=== PATIENT | male | born 1960 | race Caucasian/White ===

== ENCOUNTER 2019-01-25 22:16 | Inpatient (IN) | payer MEDICARE, MEDICAID ==
[~2019-01-25] VITALS: Ht 177.8 cm; Wt 92.5 kg
[~2019-01-25 22:16] MED LIST: ASP325TEC PO; CYCL10TA9 PO; DOCU100T7 PO; FENO135C PO; GBPN600T PO; LORA1TAB PO; MTP25TSR PO; NAPR-243 PO; OMG1KC PO; PRAV40TA PO; TRAZ150T42 PO; TRM50T PO; TRZ50T PO
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
--- OUTSIDE RECORDS SUMMARY | 2019-01-25 22:26 | XMS REPORT ---
Author VON Ortega Organization [employer] Address Unknown Phone Unavailable Care Team Providers Care Die Repairer Stamping Name Role Phone VON MAHER CP Unavailable Allergies No Known Allergies Problems Problem Type Condition Code Onset Dates Condition Status Problem Thoracic or lumbosacral neuritis or radiculitis, unspecified 724.4 Active Problem Essential hypertension, benign 401.1 Active Problem Unspecified neuralgia, neuritis, and radiculitis 729.2 Active Assessment Lumbago M54.5 Active Problem Bipolar I disorder, most recent episode (or current) depressed, moderate 296.52 Active Problem Major depressive disorder, recurrent episode, moderate 296.32 Active Problem Unspecified episodic mood disorder 296.90 Active Problem Anxiety state, unspecified 300.00 Active Problem Other and unspecified hyperlipidemia 272.4 Active Problem Abdominal pain, right lower quadrant 789.03 Active Problem Major depressive disorder, recurrent episode, severe, without mention of psychotic behavior 296.33 Active Medications Medication Code System Code Instructions Start Date End Date Status Dosage Oxycodone HCl [facility] [address]-56 10 MG Orally 2 times a day Aug 11, 2015 1 tablet as needed Results No Known Results Summary Purpose [employer] Submission
--- OUTSIDE RECORDS SUMMARY | 2019-01-25 22:26 | XMS REPORT ---
Author Author VON MAHER Organization [employer] Address Unknown Phone Unavailable Care Team Providers Care Pump Servicer Helper Name Role Phone VON MAHER CP Unavailable Allergies No Known Allergies Problems Problem Type Condition Code Onset Dates Condition Status Problem Thoracic or lumbosacral neuritis or radiculitis, unspecified 724.4 Active Problem Essential hypertension, benign 401.1 Active Problem Unspecified neuralgia, neuritis, and radiculitis 729.2 Active Problem Bipolar I disorder, most recent [...] Date End Date Status Dosage Oxycodone HCl [facility] [address]-33 10 MG Orally 2 times a day Aug 11, 2015 1 tablet as needed Ativan [facility] [address]-83 1 MG Twice a day December 23, 2014 1 tablet Results No Known Results Summary Purpose [employer] Submission
--- OUTSIDE RECORDS SUMMARY | 2019-01-25 22:26 | XMS REPORT ---
Author Author VON MAHER Organization [employer] Address Unknown Phone Unavailable Care Team Providers Care Processing Operator Name Role Phone VON MAHER CP Unavailable [...] mention of psychotic behavior 296.33 Active Medications No Known Medications Results No Known Results Summary Purpose [employer] Submission
--- OUTSIDE RECORDS SUMMARY | 2019-01-25 22:26 | XMS REPORT ---
Author VON Ortega [facility] [place] eClinicalWorks Address Unknown Phone Unavailable Care Team Providers Care Dramatic Art Teacher Name Role Phone VON MAHER CP Unavailable Allergies, Adverse Reactions, Alerts Substance Reaction Event Type N.K.D.A. Info Not Available Non Drug Allergy Problems Problem Type Condition Code Onset Dates Condition Status Problem Thoracic or lumbosacral neuritis or radiculitis, unspecified 724.4 Active Problem Essential hypertension, benign 401.1 Active Problem Unspecified neuralgia, neuritis, and radiculitis 729.2 Active Assessment Right-sided low back pain with right-sided sciatica M54.41 Active Assessment Anxiety F41.9 Active Problem Bipolar I disorder, most recent [...] Instructions Start Date End Date Status Dosage Cyclobenzaprine HCl [facility] [address]-43 10 MG Three times a day 1 tablet Pravastatin Sodium [facility] [address]-36 40 MG Orally Once a day Aug 11, 2015 1 tablet Cane [facility] 0 Nov 29, 2012 dx: gait disturbance Ativan [facility] [address]-40 1 MG Twice a day December 23, 2014 1 tablet Trilipix [facility] [address]-35 135 MG Once a day Sep 16, 2014 1 capsule Oxycodone HCl [facility] [address]-05 10 MG Orally 2 times a day Aug 11, 2015 1 tablet as needed Toprol XL [facility] [address]-61 25 MG Once a day Sep 16, 2014 1 tablet Procedures Procedure Coding System Code Date Office Visit, Est Pt., Level 3 CPT-4 34653 Aug 11, 2015 [facility] VISIT ESTABLISHED PATIENT CPT-4 G0467 Aug 11, 2015 Vital Signs Date/Time: Aug 11, 2015 Temperature 97.7 F Weight 237 lbs Height 70 in BMI 34.00 Index Blood Pressure Diastolic 94 mmHg Blood Pressure Systolic 148 mmHg Cardiac Monitoring Heart Rate 88 bpm Results No Known Results Summary Purpose eClinicalWorks Submission
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
--- OUTSIDE RECORDS SUMMARY | 2019-01-25 22:27 | XMS REPORT ---
Author Author VON MAHER Organization [employer] Address Unknown Phone Unavailable Care Team Providers Care Birth Certificate Clerk Name Role Phone VON MAHER CP Unavailable [...] Date End Date Status Dosage Oxycodone HCl [facility] [address]-96 10 MG Orally 2 times a day. FILL ON 10/10/15 Aug 11, 2015 1 tablet as needed Results No Known Results Summary Purpose [employer] Submission
--- OUTSIDE RECORDS SUMMARY | 2019-01-25 22:27 | XMS REPORT ---
Author Author VON MAHER Organization [employer] Address Unknown Phone Unavailable Care Team Providers Care Pre Press Operator Name Role Phone VON MAHER CP [...] Instructions Start Date End Date Status Dosage Ativan [facility] [address]-67 1 MG Twice a day December 23, 2014 1 tablet Results No Known Results Summary Purpose [employer] Submission
--- OUTSIDE RECORDS SUMMARY | 2019-01-25 22:28 | XMS REPORT | Continuity of Care Document ---
Author Organization Unknown Address Unknown Allergies Active Description Code Type Severity Reaction Onset Reported/Identified Relationship to Patient Clinical Status Yes No Known Drug Allergies [id number] Drug Allergy Unknown N/A 06/25/2011 Medications There is no data. Problems Date Dx Coded Attending Type Code Diagnosis Diagnosed By 01/08/2011 VON MAHER APRN 780.52 INSOMNIA UNSPECIFIED 01/08/2011 780.52 INSOMNIA UNSPECIFIED 01/08/2011 VON MAHER APRN 780.52 INSOMNIA UNSPECIFIED 01/08/2011 VON MAHER APRN 780.52 INSOMNIA UNSPECIFIED 01/08/2011 VON MAHER APRN 780.52 INSOMNIA UNSPECIFIED 01/08/2011 VON MAHER APRN 780.52 INSOMNIA UNSPECIFIED 01/08/2011 MELODIE EDWARDS PHD 780.52 INSOMNIA UNSPECIFIED 01/08/2011 VON MAHER APRN 780.52 INSOMNIA UNSPECIFIED 01/08/2011 780.52 INSOMNIA UNSPECIFIED 01/08/2011 780.52 INSOMNIA UNSPECIFIED 01/08/2011 780.52 INSOMNIA UNSPECIFIED 01/08/2011 780.52 INSOMNIA UNSPECIFIED 01/08/2011 780.52 INSOMNIA UNSPECIFIED 01/08/2011 780.52 INSOMNIA UNSPECIFIED 01/08/2011 780.52 INSOMNIA UNSPECIFIED 01/08/2011 MARÍA SZYMANSKI PHD 780.52 INSOMNIA UNSPECIFIED 01/08/2011 MARÍA SZYMANSKI PHD 780.52 INSOMNIA UNSPECIFIED 01/08/2011 VON MAHER APRN 780.52 INSOMNIA UNSPECIFIED 01/08/2011 MARÍA SZYMANSKI PHD 780.52 INSOMNIA UNSPECIFIED 01/08/2011 VON MAHER APRN 780.52 INSOMNIA UNSPECIFIED 01/08/2011 PJ GUTIERREZ APRN 780.52 INSOMNIA UNSPECIFIED 01/08/2011 VIGNESH CUNNINGHAM DO 780.52 INSOMNIA UNSPECIFIED 01/08/2011 VON MAHER APRN 780.52 INSOMNIA UNSPECIFIED 01/08/2011 PJ GUTIERREZ APRN 780.52 INSOMNIA UNSPECIFIED 01/08/2011 EDWARD GARCIA, MARIA D 780.52 INSOMNIA UNSPECIFIED 01/08/2011 VON MAHER APRN 780.52 INSOMNIA UNSPECIFIED 01/08/2011 VON MAHER APRN 780.52 INSOMNIA UNSPECIFIED 01/08/2011 LOZANO DDYUMIKO Mendiola 780.52 INSOMNIA UNSPECIFIED 01/08/2011 VON MAHER APRN 780.52 INSOMNIA UNSPECIFIED 01/08/2011 VON MAHER APRN 780.52 INSOMNIA UNSPECIFIED 01/08/2011 VON MAHER APRN 780.52 INSOMNIA UNSPECIFIED 01/08/2011 VON MAHER APRN 780.52 INSOMNIA UNSPECIFIED 06/26/2011 Ot 272.1 06/26/2011 Ot 272.4 06/26/2011 Ot 305.1 06/26/2011 Ot 401.9 06/26/2011 Ot 414.01 06/26/2011 Ot 447.71 06/26/2011 Ot 786.50 06/26/2011 Ot 789.06 06/26/2011 Ot V17.49 09/08/2011 VON MAHER APRN 724.2 lower back pain 09/08/2011 724.2 lower back pain 09/08/2011 VON MAHER APRN 724.2 lower back pain 09/08/2011 VON MAHER APRN 724.2 lower back pain 09/08/2011 VON MAHER APRN 724.2 lower back pain 09/08/2011 VON MAHER APRN 724.2 lower back pain 09/08/2011 GRACE WARE, MELODIE Jones 724.2 lower back pain 09/08/2011 VON MAHER APRN 724.2 lower back pain 09/08/2011 724.2 lower back pain 09/08/2011 724.2 lower back pain 09/08/2011 724.2 lower back pain 09/08/2011 724.2 lower back pain 09/08/2011 724.2 lower back pain 09/08/2011 724.2 lower back pain 09/08/2011 724.2 lower back pain 09/08/2011 STEPHON WARE, MARÍA Kaur 724.2 lower back pain 09/08/2011 STEPHON WAER, MARÍA Kaur 724.2 lower back pain 09/08/2011 VON MAHER APRN 724.2 lower back pain 09/08/2011 STEPHON WARE, MARÍA Kaur 724.2 lower back pain 09/08/2011 VON MAHER APRN 724.2 lower back pain 09/08/2011 PJ GUTIERREZ APRN 724.2 lower back pain 09/08/2011 VIGNESH CUNNINGHAM DO 724.2 lower back pain 09/08/2011 VON MAHER APRN T 724.2 lower back pain 09/08/2011 PJ GUTIERREZ APRN 724.2 lower back pain 09/08/2011 MARIA D LEON MD 724.2 lower back pain 09/08/2011 VON MAHER APRN 724.2 lower back pain 09/08/2011 VON MAHER APRN 724.2 lower back pain 09/08/2011 YUMIKO LOZANO DDS 724.2 lower back pain 09/08/2011 VON MAHER APRN 724.2 lower back pain 09/08/2011 VON MAHER APRN 724.2 lower back pain 09/08/2011 VON MAHER APRN 724.2 lower back pain 09/08/2011 VON MAHER APRN 724.2 lower back pain 11/24/2011 VON MAHER APRN 300.00 ANXIETY UNSPEC 11/24/2011 300.00 ANXIETY UNSPEC 11/24/2011 VON MAHER APRN 300.00 ANXIETY UNSPEC 11/24/2011 VON MAHER APRN 300.00 ANXIETY UNSPEC 11/24/2011 VON MAHER APRN 300.00 ANXIETY UNSPEC 11/24/2011 VON MAHER APRN 300.00 ANXIETY UNSPEC 11/24/2011 GRACE WARE, MELODIE Jones 300.00 ANXIETY UNSPEC 11/24/2011 VON MAHER APRN 300.00 ANXIETY UNSPEC 11/24/2011 300.00 ANXIETY UNSPEC 11/24/2011 300.00 ANXIETY UNSPEC 11/24/2011 300.00 ANXIETY UNSPEC 11/24/2011 300.00 ANXIETY UNSPEC 11/24/2011 300.00 ANXIETY UNSPEC 11/24/2011 300.00 ANXIETY UNSPEC 11/24/2011 300.00 ANXIETY UNSPEC 11/24/2011 STEPHON WARE, MARÍA Kaur 300.00 ANXIETY UNSPEC 11/24/2011 STEPHON WARE, MARÍA Kaur 300.00 ANXIETY UNSPEC 11/24/2011 VON MAHER APRN 300.00 ANXIETY UNSPEC 11/24/2011 STEPHON WARE, MARÍA Kaur 300.00 ANXIETY UNSPEC 11/24/2011 VON MAHER APRN 300.00 ANXIETY UNSPEC 11/24/2011 PJ GUTIERREZ APRN 300.00 ANXIETY UNSPEC 11/24/2011 MARISA JONES VIGNESH Clemente 300.00 ANXIETY UNSPEC 11/24/2011 GUNNAR KHAN, VON T 300.00 ANXIETY UNSPEC 11/24/2011 PJ GUTIERREZ APRN 300.00 ANXIETY UNSPEC 11/24/2011 MARIA D LEON MD 300.00 ANXIETY UNSPEC 11/24/2011 VON MAHER APRN T 300.00 ANXIETY UNSPEC 11/24/2011 VON MAHER APRN Azeem 300.00 ANXIETY UNSPEC 11/24/2011 YUMIKO LOZANO DDS 300.00 ANXIETY UNSPEC 11/24/2011 VON MAHER APRN Azeem 300.00 ANXIETY UNSPEC 11/24/2011 VON MAHER APRN Azeem 300.00 ANXIETY UNSPEC 11/24/2011 VON MAHER APRN Azeem 300.00 ANXIETY UNSPEC 11/24/2011 VON MAHER APRN Azeem 300.00 ANXIETY UNSPEC 09/27/2012 VON MAHER APRN 272.4 HYPERLIPIDEMIA 09/27/2012 VON MAHER APRN 401.1 HYPERTENSION, BENIGN ESSENTIAL 09/27/2012 VON MAHER APRN 272.4 HYPERLIPIDEMIA 09/27/2012 VON MAHER APRN 401.1 HYPERTENSION, BENIGN ESSENTIAL 09/27/2012 VON MAHER APRN 272.4 HYPERLIPIDEMIA 09/27/2012 VON MAHER APRN 401.1 HYPERTENSION, BENIGN ESSENTIAL 09/27/2012 VON MAHER APRN 272.4 HYPERLIPIDEMIA 09/27/2012 VON MAHER APRN 401.1 HYPERTENSION, BENIGN ESSENTIAL 09/27/2012 MELODIE EDWARDS PHD 272.4 HYPERLIPIDEMIA 09/27/2012 MELODIE EDWARDS PHD 401.1 HYPERTENSION, BENIGN ESSENTIAL 09/27/2012 VON MAHER APRN 272.4 HYPERLIPIDEMIA 09/27/2012 VON MAHER APRN 401.1 HYPERTENSION, BENIGN ESSENTIAL 09/27/2012 272.4 HYPERLIPIDEMIA 09/27/2012 401.1 HYPERTENSION, BENIGN ESSENTIAL 09/27/2012 272.4 HYPERLIPIDEMIA 09/27/2012 401.1 HYPERTENSION, BENIGN ESSENTIAL 09/27/2012 272.4 HYPERLIPIDEMIA 09/27/2012 401.1 HYPERTENSION, BENIGN ESSENTIAL 09/27/2012 272.4 HYPERLIPIDEMIA 09/27/2012 401.1 HYPERTENSION, BENIGN ESSENTIAL 09/27/2012 272.4 HYPERLIPIDEMIA 09/27/2012 401.1 HYPERTENSION, BENIGN ESSENTIAL 09/27/2012 272.4 HYPERLIPIDEMIA 09/27/2012 401.1 HYPERTENSION, BENIGN ESSENTIAL 09/27/2012 272.4 HYPERLIPIDEMIA 09/27/2012 401.1 HYPERTENSION, BENIGN ESSENTIAL 09/27/2012 STEPHON WARE, MARÍA Kaur 272.4 HYPERLIPIDEMIA 09/27/2012 STEPHON WARE, MARÍA Kaur 401.1 HYPERTENSION, BENIGN ESSENTIAL 09/27/2012 STEPHON WARE, MARÍA Kaur 272.4 HYPERLIPIDEMIA 09/27/2012 STEPHON WARE, MARÍA Kaur 401.1 HYPERTENSION, BENIGN ESSENTIAL 09/27/2012 VON MAHER APRN 272.4 HYPERLIPIDEMIA 09/27/2012 VON MAHER APRN 401.1 HYPERTENSION, BENIGN ESSENTIAL 09/27/2012 STEPHON WARE, MARÍA Kaur 272.4 HYPERLIPIDEMIA 09/27/2012 STEPHON WARE, MARÍA Kaur 401.1 HYPERTENSION, BENIGN ESSENTIAL 09/27/2012 VON MAHER APRN 272.4 HYPERLIPIDEMIA 09/27/2012 VON MAHER APRN T 401.1 HYPERTENSION, BENIGN ESSENTIAL 09/27/2012 DIANA GUTIERREZ APRNNDA S 272.4 HYPERLIPIDEMIA 09/27/2012 MATT KHAN PJ S 401.1 HYPERTENSION, BENIGN ESSENTIAL 09/27/2012 CUNNINGHAM DO, VIGNESH K 272.4 HYPERLIPIDEMIA 09/27/2012 CUNNINGHAM DO, VIGNESH K 401.1 HYPERTENSION, BENIGN ESSENTIAL 09/27/2012 VON MAHER APRN T 272.4 HYPERLIPIDEMIA 09/27/2012 VON MAHER APRN 401.1 HYPERTENSION, BENIGN ESSENTIAL 09/27/2012 MATT KHAN PJ S 272.4 HYPERLIPIDEMIA 09/27/2012 MATT KHAN PJ S 401.1 HYPERTENSION, BENIGN ESSENTIAL 09/27/2012 MARIA D LEON MD 272.4 HYPERLIPIDEMIA 09/27/2012 MARIA D LEON MD 401.1 HYPERTENSION, BENIGN ESSENTIAL 09/27/2012 VON MAHER APRN T 272.4 HYPERLIPIDEMIA 09/27/2012 VON MAHER APRN 401.1 HYPERTENSION, BENIGN ESSENTIAL 09/27/2012 VON MAHER APRN 272.4 HYPERLIPIDEMIA 09/27/2012 VON MAHER APRN 401.1 HYPERTENSION, BENIGN ESSENTIAL 09/27/2012 LOZANO DDS, YUMIKO 272.4 HYPERLIPIDEMIA 09/27/2012 LOZANO DDS, YUMIKO 401.1 HYPERTENSION, BENIGN ESSENTIAL 09/27/2012 VON MAHER APRN T 272.4 HYPERLIPIDEMIA 09/27/2012 GUNNAR KHAN, VON T 401.1 HYPERTENSION, BENIGN ESSENTIAL 09/27/2012 VON MAHER APRN T 272.4 HYPERLIPIDEMIA 09/27/2012 VON MAHER APRN T 401.1 HYPERTENSION, BENIGN ESSENTIAL 09/27/2012 VON MAHER APRN T 272.4 HYPERLIPIDEMIA 09/27/2012 VON MAHER APRN T 401.1 HYPERTENSION, BENIGN ESSENTIAL 09/27/2012 VON MAHER APRN T 272.4 HYPERLIPIDEMIA 09/27/2012 VON MAHER APRN T 401.1 HYPERTENSION, BENIGN ESSENTIAL 10/31/2012 VON MAHER APRN T 724.4 THORACIC OR LUMBOSACRAL NEURITIS OR RADICULITIS UNSPECIFIED 10/31/2012 VON MAHER APRN T 724.4 THORACIC OR LUMBOSACRAL NEURITIS OR RADICULITIS UNSPECIFIED 10/31/2012 VON MAHER APRN T 724.4 THORACIC OR LUMBOSACRAL NEURITIS OR RADICULITIS UNSPECIFIED 10/31/2012 GRACE PHD, MELODIE Jones 724.4 THORACIC OR LUMBOSACRAL NEURITIS OR RADICULITIS UNSPECIFIED 10/31/2012 VON MAHER APRN T 724.4 THORACIC OR LUMBOSACRAL NEURITIS OR RADICULITIS UNSPECIFIED 10/31/2012 724.4 THORACIC OR LUMBOSACRAL NEURITIS OR RADICULITIS UNSPECIFIED 10/31/2012 724.4 THORACIC OR LUMBOSACRAL NEURITIS OR RADICULITIS UNSPECIFIED 10/31/2012 724.4 THORACIC OR LUMBOSACRAL NEURITIS OR RADICULITIS UNSPECIFIED 10/31/2012 724.4 THORACIC OR LUMBOSACRAL NEURITIS OR RADICULITIS UNSPECIFIED 10/31/2012 724.4 THORACIC OR LUMBOSACRAL NEURITIS OR RADICULITIS UNSPECIFIED 10/31/2012 724.4 THORACIC OR LUMBOSACRAL NEURITIS OR RADICULITIS UNSPECIFIED 10/31/2012 724.4 THORACIC OR LUMBOSACRAL NEURITIS OR RADICULITIS UNSPECIFIED 10/31/2012 STEPHON WARE, MARÍA Kaur 724.4 THORACIC OR LUMBOSACRAL NEURITIS OR RADICULITIS UNSPECIFIED 10/31/2012 STEPHON WARE, MARÍA Kaur 724.4 THORACIC OR LUMBOSACRAL NEURITIS OR RADICULITIS UNSPECIFIED 10/31/2012 VON MAHER APRN 724.4 THORACIC OR LUMBOSACRAL NEURITIS OR RADICULITIS UNSPECIFIED 10/31/2012 STEPHON WARE, MARÍA Kaur 724.4 THORACIC OR LUMBOSACRAL NEURITIS OR RADICULITIS UNSPECIFIED 10/31/2012 VON MAHER APRN 724.4 THORACIC OR LUMBOSACRAL NEURITIS OR RADICULITIS UNSPECIFIED 10/31/2012 PJ GUTIERREZ APRN 724.4 THORACIC OR LUMBOSACRAL NEURITIS OR RADICULITIS UNSPECIFIED 10/31/2012 VIGNESH CUNNINGHAM DO 724.4 THORACIC OR LUMBOSACRAL NEURITIS OR RADICULITIS UNSPECIFIED 10/31/2012 VON MAHER APRN 724.4 THORACIC OR LUMBOSACRAL NEURITIS OR RADICULITIS UNSPECIFIED 10/31/2012 PJ GUTIERREZ APRN S 724.4 THORACIC OR LUMBOSACRAL NEURITIS OR RADICULITIS UNSPECIFIED 10/31/2012 MARIA D LEON MD 724.4 THORACIC OR LUMBOSACRAL NEURITIS OR RADICULITIS UNSPECIFIED 10/31/2012 VON MAHER APRN 724.4 THORACIC OR LUMBOSACRAL NEURITIS OR RADICULITIS UNSPECIFIED 10/31/2012 VON MAHER APRN 724.4 THORACIC OR LUMBOSACRAL NEURITIS OR RADICULITIS UNSPECIFIED 10/31/2012 YUMIKO LOZANO DDS 724.4 THORACIC OR LUMBOSACRAL NEURITIS OR RADICULITIS UNSPECIFIED 10/31/2012 VON MAHER APRN 724.4 THORACIC OR LUMBOSACRAL NEURITIS OR RADICULITIS UNSPECIFIED 10/31/2012 VON MAHER APRN 724.4 THORACIC OR LUMBOSACRAL NEURITIS OR RADICULITIS UNSPECIFIED 10/31/2012 VON MAHER APRN 724.4 THORACIC OR LUMBOSACRAL NEURITIS OR RADICULITIS UNSPECIFIED 10/31/2012 VON MAHER APRN 724.4 THORACIC OR LUMBOSACRAL NEURITIS OR RADICULITIS UNSPECIFIED 11/29/2012 VON MAHER APRN 729.2 NEURALGIA NEURITIS AND RADICULITIS UNSPECIFIED 11/29/2012 MELODIE EDWARDS PHD 729.2 NEURALGIA NEURITIS AND RADICULITIS UNSPECIFIED 11/29/2012 VON MAHER APRN 729.2 NEURALGIA NEURITIS AND RADICULITIS UNSPECIFIED 11/29/2012 729.2 NEURALGIA NEURITIS AND RADICULITIS UNSPECIFIED 11/29/2012 729.2 NEURALGIA NEURITIS AND RADICULITIS UNSPECIFIED 11/29/2012 729.2 NEURALGIA NEURITIS AND RADICULITIS UNSPECIFIED 11/29/2012 729.2 NEURALGIA NEURITIS AND RADICULITIS UNSPECIFIED 11/29/2012 729.2 NEURALGIA NEURITIS AND RADICULITIS UNSPECIFIED 11/29/2012 729.2 NEURALGIA NEURITIS AND RADICULITIS UNSPECIFIED 11/29/2012 729.2 NEURALGIA NEURITIS AND RADICULITIS UNSPECIFIED 11/29/2012 MAÍRA SZYMANSKI PHD 729.2 NEURALGIA NEURITIS AND RADICULITIS UNSPECIFIED 11/29/2012 MARÍA SZYMANSKI PHD 729.2 NEURALGIA NEURITIS AND RADICULITIS UNSPECIFIED 11/29/2012 VON MAHER APRN 729.2 NEURALGIA NEURITIS AND RADICULITIS UNSPECIFIED 11/29/2012 MARÍA SZYMANSKI PHD 729.2 NEURALGIA NEURITIS AND RADICULITIS UNSPECIFIED 11/29/2012 VON MAHER APRN 729.2 NEURALGIA NEURITIS AND RADICULITIS UNSPECIFIED 11/29/2012 PJ GUTIERREZ APRN S 729.2 NEURALGIA NEURITIS AND RADICULITIS UNSPECIFIED 11/29/2012 VIGNESH CUNNINGHAM DO 729.2 NEURALGIA NEURITIS AND RADICULITIS UNSPECIFIED 11/29/2012 VON MAHER APRN 729.2 NEURALGIA NEURITIS AND RADICULITIS UNSPECIFIED 11/29/2012 PJ GUTIERREZ APRN S 729.2 NEURALGIA NEURITIS AND RADICULITIS UNSPECIFIED 11/29/2012 MARIA D LEON MD 729.2 NEURALGIA NEURITIS AND RADICULITIS UNSPECIFIED 11/29/2012 VON MAHER APRN 729.2 NEURALGIA NEURITIS AND RADICULITIS UNSPECIFIED 11/29/2012 VON MAHER APRN 729.2 NEURALGIA NEURITIS AND RADICULITIS UNSPECIFIED 11/29/2012 BLAKE FRAUSTO, YUMIKO 729.2 NEURALGIA NEURITIS AND RADICULITIS UNSPECIFIED 11/29/2012 VON MAHER APRN 729.2 NEURALGIA NEURITIS AND RADICULITIS UNSPECIFIED 11/29/2012 VON MAHER APRN 729.2 NEURALGIA NEURITIS AND RADICULITIS UNSPECIFIED 11/29/2012 VON MAHER APRN 729.2 NEURALGIA NEURITIS AND RADICULITIS UNSPECIFIED 11/29/2012 VON MAHER APRN 729.2 NEURALGIA NEURITIS AND RADICULITIS UNSPECIFIED 12/04/2012 Ot 847.1 12/04/2012 Ot 847.2 12/04/2012 Ot 922.32 12/04/2012 Ot 923.11 12/04/2012 Ot 959.19 12/04/2012 Ot E000.8 12/04/2012 Ot E001.0 12/04/2012 Ot E849.0 12/04/2012 Ot E885.9 12/20/2012 GRACE WARE, MELODIE Jones 296.33 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 PSYCHOTIC BEHAVIOR 12/20/2012 VON MAHER APRN 296.33 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 PSYCHOTIC BEHAVIOR 12/20/2012 296.33 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 PSYCHOTIC BEHAVIOR 12/20/2012 296.33 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 PSYCHOTIC BEHAVIOR 12/20/2012 296.33 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 PSYCHOTIC BEHAVIOR 12/20/2012 296.33 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 PSYCHOTIC BEHAVIOR 12/20/2012 296.33 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 PSYCHOTIC BEHAVIOR 12/20/2012 296.33 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 PSYCHOTIC BEHAVIOR 12/20/2012 296.33 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 PSYCHOTIC BEHAVIOR 12/20/2012 STEPHON PHD, MARÍA Kaur 296.33 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 PSYCHOTIC BEHAVIOR 12/20/2012 STEPHON WARE, MARÍA Kaur 296.33 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 PSYCHOTIC BEHAVIOR 12/20/2012 GUNNAR SPRAY GUN STRIPER, VON T 296.33 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 PSYCHOTIC BEHAVIOR 12/20/2012 MARÍA SZYMANSKI PHD 296.33 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 PSYCHOTIC BEHAVIOR 12/20/2012 VON MAHER APRN T 296.33 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 PSYCHOTIC BEHAVIOR 12/20/2012 PJ GUTIERREZ APRN S 296.33 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 PSYCHOTIC BEHAVIOR 12/20/2012 VIGNESH CUNNINGHAM DO 296.33 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 PSYCHOTIC BEHAVIOR 12/20/2012 VON MAHER APRN T 296.33 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 PSYCHOTIC BEHAVIOR 12/20/2012 PJ GUTIERREZ APRN S 296.33 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 PSYCHOTIC BEHAVIOR 12/20/2012 MARIA D LEON MD 296.33 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 PSYCHOTIC BEHAVIOR 12/20/2012 VON MAHER APRN 296.33 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 PSYCHOTIC BEHAVIOR 12/20/2012 VON MAHER APRN 296.33 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 PSYCHOTIC BEHAVIOR 12/20/2012 YUMIKO LOZANO DDS 296.33 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 PSYCHOTIC BEHAVIOR 12/20/2012 VON MAHER APRN T 296.33 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 PSYCHOTIC BEHAVIOR 12/20/2012 VON MAHER APRN T 296.33 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 PSYCHOTIC BEHAVIOR 12/20/2012 VON MAHER APRN T 296.33 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 PSYCHOTIC BEHAVIOR 12/20/2012 VON MAHER APRN T 296.33 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 PSYCHOTIC BEHAVIOR 02/26/2013 Ot 780.4 02/26/2013 Ot 785.1 03/12/2013 296.90 MOOD DISORDER 03/12/2013 296.90 MOOD DISORDER 03/12/2013 296.90 MOOD DISORDER 03/12/2013 296.90 MOOD DISORDER 03/12/2013 296.90 MOOD DISORDER 03/12/2013 296.90 MOOD DISORDER 03/12/2013 MARÍA SZYMANSKI PHD 296.90 MOOD DISORDER 03/12/2013 MARÍA SZYMANSKI PHD 296.90 MOOD DISORDER 03/12/2013 VON MAHER APRN 296.90 MOOD DISORDER 03/12/2013 MARÍA SZYMANSKI PHD 296.90 MOOD DISORDER 03/12/2013 GUNNAR SPRAY GUN STRIPER, VON T 296.90 MOOD DISORDER 03/12/2013 MATT KHAN, PJ S 296.90 MOOD DISORDER 03/12/2013 CUNNINGHAM DO, VIGNESH K 296.90 MOOD DISORDER 03/12/2013 GUNNAR KHAN, VON T 296.90 MOOD DISORDER 03/12/2013 MATT KHAN, PJ S 296.90 MOOD DISORDER 03/12/2013 MARIA D LEON MD 296.90 MOOD DISORDER 03/12/2013 GUNNAR KHAN VON T 296.90 MOOD DISORDER 03/12/2013 GUNNAR KHAN, VON T 296.90 MOOD DISORDER 03/12/2013 YUMIKO LOZANO DDS 296.90 MOOD DISORDER 03/12/2013 GUNNAR KHAN, VON T 296.90 MOOD DISORDER 03/12/2013 GUNNAR KHAN, VON T 296.90 MOOD DISORDER 03/12/2013 GUNNAR KHAN, VON T 296.90 MOOD DISORDER 03/12/2013 GUNNAR KHAN VON T 296.90 MOOD DISORDER 03/15/2013 296.32 MO DEPRESSIVE RECURRENT MODERATE 03/15/2013 296.32 MO DEPRESSIVE RECURRENT MODERATE 03/15/2013 296.32 MO DEPRESSIVE RECURRENT MODERATE 03/15/2013 296.32 MO DEPRESSIVE RECURRENT MODERATE 03/15/2013 296.32 MO DEPRESSIVE RECURRENT MODERATE 03/15/2013 STEPHON WARE, MARÍA Kaur 296.32 MO DEPRESSIVE RECURRENT MODERATE 03/15/2013 STEPHON WARE, MARÍA Kaur 296.32 MO DEPRESSIVE RECURRENT MODERATE 03/15/2013 VON MAHER APRN T 296.32 MO DEPRESSIVE RECURRENT MODERATE 03/15/2013 STEPHON WARE, MARÍA Kaur 296.32 MO DEPRESSIVE RECURRENT MODERATE 03/15/2013 VON MAHER APRN T 296.32 MO DEPRESSIVE RECURRENT MODERATE 03/15/2013 DIANA GUTIERREZ APRNNDA S 296.32 MO DEPRESSIVE RECURRENT MODERATE 03/15/2013 CUNNINGHAM DO, VIGNESH K 296.32 MO DEPRESSIVE RECURRENT MODERATE 03/15/2013 VON MAHER APRN T 296.32 MO DEPRESSIVE RECURRENT MODERATE 03/15/2013 DIANA GUTIERREZ APRNNDA S 296.32 MO DEPRESSIVE RECURRENT MODERATE 03/15/2013 MARIA D LEON MD 296.32 MO DEPRESSIVE RECURRENT MODERATE 03/15/2013 VON MAHER APRN T 296.32 MO DEPRESSIVE RECURRENT MODERATE 03/15/2013 VON MAHER APRN T 296.32 MO DEPRESSIVE RECURRENT MODERATE 03/15/2013 LOZANO DDS, YUMIKO 296.32 MO DEPRESSIVE RECURRENT MODERATE 03/15/2013 GUNNAR KHAN VON T 296.32 MO DEPRESSIVE RECURRENT MODERATE 03/15/2013 VON MAHER APRN T 296.32 MO DEPRESSIVE RECURRENT MODERATE 03/15/2013 GUNNAR KHAN VON T 296.32 MO DEPRESSIVE RECURRENT MODERATE 03/15/2013 VON MAHER APRN T 296.32 MO DEPRESSIVE RECURRENT MODERATE 07/13/2013 STEPHON WARE, MARÍA Kaur 296.52 MO BIPOLAR I DEPRESSED MODERATE 07/13/2013 VON MAHER APRN T 296.52 MO BIPOLAR I DEPRESSED MODERATE 07/13/2013 STEPHON WARE, MARÍA Kaur 296.52 MO BIPOLAR I DEPRESSED MODERATE 07/13/2013 VON MAHER APRN T 296.52 MO BIPOLAR I DEPRESSED MODERATE 07/13/2013 PJ GUTIERREZ APRN S 296.52 MO BIPOLAR I DEPRESSED MODERATE 07/13/2013 VIGNESH CUNNINGHAM DO K 296.52 MO BIPOLAR I DEPRESSED MODERATE 07/13/2013 VON MAHER APRN T 296.52 MO BIPOLAR I DEPRESSED MODERATE 07/13/2013 PJ GUTIERREZ APRN S 296.52 MO BIPOLAR I DEPRESSED MODERATE 07/13/2013 MARIA D LEON MD 296.52 MO BIPOLAR I DEPRESSED MODERATE 07/13/2013 VON MAHER APRN T 296.52 MO BIPOLAR I DEPRESSED MODERATE 07/13/2013 GUNNAR KHAN VON T 296.52 MO BIPOLAR I DEPRESSED MODERATE 07/13/2013 LOZANO DDS, YUMIKO 296.52 MO BIPOLAR I DEPRESSED MODERATE 07/13/2013 GUNNAR KHAN VON T 296.52 MO BIPOLAR I DEPRESSED MODERATE 07/13/2013 VON MAHER APRN T 296.52 MO BIPOLAR I DEPRESSED MODERATE 07/13/2013 GUNNAR KHAN VON T 296.52 MO BIPOLAR I DEPRESSED MODERATE 07/13/2013 GUNNAR KHAN VON T 296.52 MO BIPOLAR I DEPRESSED MODERATE 09/17/2013 BENITA GUTIERREZ APRNA S 789.03 ABDOMINAL PAIN RIGHT LOWER QUADRANT 09/17/2013 VIGNESH CUNNINGHAM DO 789.03 ABDOMINAL PAIN RIGHT LOWER QUADRANT 09/17/2013 VON MAHER APRN T 789.03 ABDOMINAL PAIN RIGHT LOWER QUADRANT 09/17/2013 PJ GUTIERREZ APRN S 789.03 ABDOMINAL PAIN RIGHT LOWER QUADRANT 09/17/2013 MARIA D LEON MD 789.03 ABDOMINAL PAIN RIGHT LOWER QUADRANT 09/17/2013 GUNNAR BENNETTN, VON T 789.03 ABDOMINAL PAIN RIGHT LOWER QUADRANT 09/17/2013 GUNNAR KHAN, VON T 789.03 ABDOMINAL PAIN RIGHT LOWER QUADRANT 09/17/2013 BLAKE FRAUSTO, YUMIKO 789.03 ABDOMINAL PAIN RIGHT LOWER QUADRANT 09/17/2013 GUNNAR BENNETTN, VON T 789.03 ABDOMINAL PAIN RIGHT LOWER QUADRANT 09/17/2013 GUNNAR BENNETTN, VON Gann 789.03 ABDOMINAL PAIN RIGHT LOWER QUADRANT 09/17/2013 GUNNAR BENNETTN, VON Gann 789.03 ABDOMINAL PAIN RIGHT LOWER QUADRANT 09/17/2013 GUNNAR ERIN, VON Gann 789.03 ABDOMINAL PAIN RIGHT LOWER QUADRANT 09/18/2013 PJ GUTIERREZ TEACHER TUTOR Ot 272.4 09/18/2013 PJ GUTIERREZ TEACHER TUTOR Ot 401.9 09/18/2013 PJ GUTIERREZ TEACHER TUTOR Ot 414.01 09/18/2013 PJ GUTIERREZ TEACHER TUTOR Ot 540.9 09/18/2013 PJ GUTIERREZ TEACHER TUTOR Ot 724.2 09/02/2015 Ot 724.1 09/02/2015 Ot 724.4 09/02/2015 Ot 722.52 09/02/2015 Ot 959.19 09/02/2015 Ot E000.8 09/02/2015 Ot E917.9 09/02/2015 Ot 272.1 09/02/2015 Ot 414.00 09/02/2015 Ot 790.29 09/02/2015 Ot 724.4 09/02/2015 Ot 724.4 09/02/2015 Ot 733.13 09/02/2015 Ot 780.4 09/02/2015 Ot 785.1 09/02/2015 MAURO GARCIA, MUNIR Gann Ot F17.210 NICOTINE DEPENDENCE, CIGARETTES, UNCOMPL 09/02/2015 MAURO GARCIA, MUNIR Gann Ot K57.90 DVRTCLOS OF INTEST, PART UNSP, W/O PERF 09/02/2015 MAURO GARCIA, MUNIR Gann Ot M43.06 SPONDYLOLYSIS, LUMBAR REGION 09/02/2015 MAURO GARCIA, MUNIR Gann Ot M54.16 RADICULOPATHY, LUMBAR REGION 09/02/2015 MAURO GARCIA, MUNIR Gann Ot S39.92XA UNSPECIFIED INJURY OF LOWER BACK, INITIA 09/02/2015 MUNIR WADE MD Ot W11.XXXA FALL ON AND FROM LADDER, INITIAL ENCOUNT 09/02/2015 MAURO GARCIA, MUNIR Gann Ot Y92.017 GARDEN OR YARD IN SINGLE-FAMILY (PRIVATE 09/02/2015 MUNIR WADE MD Ot Y99.8 OTHER EXTERNAL CAUSE STATUS 09/02/2015 Ot 724.1 09/02/2015 Ot 724.4 09/02/2015 Ot 722.52 09/02/2015 Ot 959.19 09/02/2015 Ot E000.8 09/02/2015 Ot E917.9 09/02/2015 Ot 272.1 09/02/2015 Ot 414.00 09/02/2015 Ot 790.29 09/02/2015 Ot 724.4 09/02/2015 Ot 724.4 09/02/2015 Ot 733.13 09/02/2015 Ot 780.4 09/02/2015 Ot 785.1 10/05/2015 LESTER BRAUN MD Ot F17.210 10/05/2015 LESTER BRAUN MD Ot T20.26XA 10/05/2015 LESTER BRAUN MD Ot T20.27XA 10/05/2015 LESTER BRAUN MD Ot W40.9XXA 10/05/2015 LESTER BRAUN MD Ot Y99.8 10/05/2015 LESTER BRAUN MD Ot Z23 Procedures Code [place] [address] ROUTINE VENIPUNCTURE 08/29/2012 67633 CMP 08/29/2012 07215 LIPID PANEL 08/29/2012 38258 TSH 08/29/2012 14330 CBC 08/29/2012 J1885 TORADOL INJ 10/31/2012 25121 MRI SPINE (LUMBAR) W/O CONTRAST 10/31/2012 03135 THERAPUTIC INJ SQ/IM 10/31/2012 32681 THERAPUTIC INJ SQ/IM 11/29/2012 J1885 TORADOL INJ 11/29/2012 José Arias 11/29/2012 95597 PSYCH DIAGNOSTIC EVALUATION 12/21/2012 77509 PSYTX PT&/FAMILY 30 MINUTES 03/16/2013 92906 ROUTINE VENIPUNCTURE 06/18/2013 47873 THERAPUTIC INJ SQ/IM 06/18/2013 J1885 TORADOL INJ 06/18/2013 59244 MYOGLOBIN 06/18/2013 56748 ESR/SED RATE 06/18/2013 84385 CRP 06/18/2013 80428 RA FACTOR 06/18/2013 ANAANA MIREILLE ANALYZER (SCREEN) 06/18/2013 52595 PSYTX PT&/FAMILY 45 MINUTES 06/25/2013 24945 PSYTX PT&/FAMILY 30 MINUTES 07/18/2013 07789 BMP 08/13/2013 87034 CBC 08/13/2013 29288 THERAPUTIC INJ SQ/IM 08/13/2013 J1885 TORADOL INJ 08/13/2013 52903 PSYTX PT&/FAMILY 30 MINUTES 08/17/2013 72714 THERAPUTIC INJ SQ/IM 09/12/2013 J1885 TORADOL INJ 09/12/[address] ABDOMEN & PELVIS W/ & W/ O CONTRAST 09/17/2013 Results There is no data. Encounters ACCT No. Visit Date/Time Discharge Status Pt. Type Provider Facility Loc./Unit Complaint [id number] 12/23/2014 16:13:00 12/23/2014 23:59:59 CLS Outpatient VON MAHER APRN [id number] 09/16/2014 15:18:00 09/16/2014 23:59:59 CLS Outpatient VON MAHER APRN [id number] 04/23/2014 00:00:00 04/23/2014 23:59:59 CLS Outpatient VON MAHER APRN [id number] 2014 15:00:00 2014 23:59:59 CLS Outpatient VON MAHER APRN [id number] 02/12/2014 14:19:00 02/12/2014 23:59:59 CLS Outpatient YUMIKO LOZANO DDS [id number] 12/05/2013 17:32:00 12/05/2013 23:59:59 CLS Outpatient VON MAHER APRN [id number] 11/23/2013 11:38:00 11/23/2013 23:59:59 CLS Outpatient VON MAHER APRN [id number] 10/22/2013 13:37:00 10/22/2013 23:59:59 CLS Outpatient MARIA D LEON MD [id number] 10/12/2013 14:43:00 10/12/2013 23:59:59 CLS Outpatient VON MAHER APRN [id number] 09/17/2013 16:06:00 09/17/2013 23:59:59 CLS Outpatient PJ GUTIERREZ APRN [id number] 09/17/2013 16:06:00 09/17/2013 23:59:59 CLS Outpatient MATT BENNETTNPJ [id number] 09/12/2013 14:39:00 09/12/2013 23:59:59 CLS Outpatient VON MAHER APRN [id number] 08/16/2013 14:55:00 08/16/2013 23:59:59 CLS Outpatient MARÍA SZYMANSKI PHD [id number] 08/13/2013 11:59:00 08/13/2013 23:59:59 CLS Outpatient VON MAHER APRN [id number] 08/13/2013 11:59:00 08/13/2013 23:59:59 CLS Outpatient MARISA JONES VIGNESH Clemente [id number] 07/13/2013 15:05:00 07/13/2013 23:59:59 CLS Outpatient MARÍA SZYMANSKI PHD [id number] 06/22/2013 08:02:00 06/22/2013 23:59:59 CLS Outpatient MARÍA SZYMANSKI PHD [id number] 12/27/2012 17:37:00 12/27/2012 23:59:59 CLS Outpatient VON MAHER APRN [id number] 12/20/2012 11:48:00 12/20/2012 23:59:59 CLS Outpatient MELODIE EDWARDS PHD [id number] 11/29/2012 10:53:00 11/29/2012 23:59:59 CLS Outpatient VON MAHER APRN [id number] 10/31/2012 14:18:00 10/31/2012 23:59:59 CLS Outpatient VON MAHER APRN [id number] 10/31/2012 14:18:00 10/31/2012 23:59:59 CLS Outpatient VON MAHER APRN [id number] 09/27/2012 10:15:00 09/27/2012 23:59:59 CLS Outpatient VON MAHER APRN [id number] 08/29/2012 09:22:00 08/29/2012 23:59:59 CLS Outpatient [id number] 08/18/2012 11:09:00 08/18/2012 23:59:59 CLS Outpatient VON MAHER APRN [id number] 06/18/2013 09:52:00 Document Registration [id number] 05/18/2013 10:32:00 Document Registration [id number] 04/18/2013 14:52:00 Document Registration [id number] 03/15/2013 10:11:00 Document Registration [id number] 03/12/2013 15:04:00 Document Registration [id number] 03/03/2013 00:00:00 Document Registration [id number] 01/22/2013 00:00:00 Document Registration [id number] 10/05/2015 16:31:00 10/05/2015 18:33:00 DIS Emergency KADE GARCIA, LESTER Cornejo [facility] ER [id number] 09/02/2015 20:10:00 09/02/2015 23:13:00 DIS Emergency MAURO GARCIA, MUNIR Gann [facility] ER FALL/BACK PAIN [id number] 09/17/2013 19:04:00 09/18/2013 15:30:00 DIS Outpatient PJ GUTIERREZ [facility] [id number] 01/25/2019 22:18:00 ACT Emergency LOUISE STARK DO [facility] ER L FOOT PAIN [id number] 02/27/2013 14:00:00 Document Registration [id number] 12/04/2012 09:54:00 Document Registration [id number] 12/01/2012 13:30:00 Document Registration [id number] 11/17/2012 08:50:00 Document Registration [id number] 11/09/2012 09:51:00 Document Registration [id number] 09/28/2011 08:51:00 Document Registration [id number] 08/30/2011 12:53:00 Document Registration [id number] 08/16/2011 15:16:00 Document Registration [id number] 06/25/2011 10:52:00 Document Registration
[2019-01-26] MEDS ORDERED: ceFAZolin 2 GM IV Premixed 50 ML IV STA (00:04)
[2019-01-26] MEDS ORDERED: KETOROLAC 30 MG/ML VIAL IVP ONE (00:15)
[2019-01-26 00:33] LABS: BASOPHILS % (AUTO) 0 % (0-10); EOSINOPHILS # (AUTO) 0.1 10^3/uL (0.0-0.3); EOSINOPHILS % (AUTO) 1 % (0-10); HEMATOCRIT 42 % (40-54); HEMOGLOBIN 14.2 G/DL (13.3-17.7); LYMPHOCYTES # (AUTO) 3.6 X 10^3 (1.0-4.0); LYMPHOCYTES % (AUTO) 28 % (12-44); MEAN CORPUSCULAR HEMOGLOBIN 31 PG (25-34); MEAN CORPUSCULAR HGB CONC 34 G/DL (32-36); MEAN CORPUSCULAR VOLUME 93 FL (80-99); MEAN PLATELET VOLUME 9.4 FL (7.4-10.4); MONOCYTES % (AUTO) 8 % (0-12); NEUTROPHILS % (AUTO) 63 % (42-75); PLATELET COUNT 260 10^3/uL (130-400); RED CELL DISTRIBUTION WIDTH 14.4 % (10.0-14.5); WHITE BLOOD COUNT 12.8 10^3/uL (4.3-11.0)
[2019-01-26 00:41] LABS: INR 0.9 (0.8-1.4); PROTHROMBIN TIME PATIENT 12.6 SEC (12.2-14.7)
[2019-01-26 00:49] LABS: ALANINE AMINOTRANSFERASE 32 U/L (0-55); ALBUMIN 3.9 GM/DL (3.2-4.5); ALKALINE PHOSPHATASE 75 U/L (40-136); BILIRUBIN,TOTAL 0.2 MG/DL (0.1-1.0); BUN/CREATININE RATIO 14; CALCIUM 9.3 MG/DL (8.5-10.1); CARBON DIOXIDE 25 MMOL/L (21-32); CHLORIDE 101 MMOL/L (98-107); CREATININE SERUM 1.15 MG/DL (0.60-1.30); GFR ESTIMATED > 60; GLUCOSE 101 MG/DL (70-105); SODIUM 138 MMOL/L (135-145); TOTAL PROTEIN 6.9 GM/DL (6.4-8.2)
[2019-01-26 01:03] LABS: ERYTHROCYTE SEDIMENTATION RATE 12 MM/HR (0-30)
--- NOTE | 2019-01-26 01:25 | NUR ---
YANETH NOLAND admitted to room 419-1, with an admitting diagnosis of left foot plantar puncture wound with cellulitis, on 01/26/19 from [facility] ED via WC, accompanied by ED Staff Member.YANETH NOLAND introduced to surroundings, call light, bed controls, phone, TV, temperature control, lights, meal times, smoking policy, visitor policy, side rail policy, bathrooms and showers. Patient Rights given to patient in the handbook. YANETH NOLAND verbalizes understanding that [facility] is not responsible for the loss or damage to any personal effects or valuables that are kept in the patients posession during their hospitalization. Patient and/or family were informed about the Rapid Response Team and its purpose. Patient plan of care discussed and no concerns at this time.
[2019-01-26] MEDS ORDERED: PIPERACILLIN/TAZO 4.5 GM/NS 100 ML IV ONE ×2 (02:00)
[2019-01-26] MEDS ORDERED: CATHETER FLUSH 10 ML SYR IV PRN (02:00)
[2019-01-26] MEDS ORDERED: KETOROLAC 30 MG/ML VIAL IV PRN (02:00)
[2019-01-26 02:02] VITALS: BP 139/77
[2019-01-26] MEDS ORDERED: PIPERACILLIN/TAZO 4.5 GM VIAL (ZOSYN) IV ONE (02:21)
[2019-01-26] MEDS ORDERED: NS (IVPB) 100 ML ONE (02:21)
[2019-01-26] MEDS: ACETAMINOPHEN 500 MG TAB (TYLENOL) PO PRN ×2 (02:36→10:15)
[2019-01-26 04:44] VITALS: BP 135/82
[2019-01-26] MEDS: CATHETER FLUSH 10 ML SYR IV SCH ×2 (05:04→08:48)
[2019-01-26 06:05] LABS: BASOPHILS % (AUTO) 0 % (0-10); EOSINOPHILS # (AUTO) 0.2 10^3/uL (0.0-0.3); EOSINOPHILS % (AUTO) 2 % (0-10); HEMATOCRIT 41 % (40-54); HEMOGLOBIN 13.8 G/DL (13.3-17.7); LYMPHOCYTES % (AUTO) 35 % (12-44); MEAN CORPUSCULAR HEMOGLOBIN 31 PG (25-34); MEAN CORPUSCULAR HGB CONC 33 G/DL (32-36); MEAN CORPUSCULAR VOLUME 94 FL (80-99); MONOCYTES # (AUTO) 1.1 X 10^3 (0.0-1.0); MONOCYTES % (AUTO) 9 % (0-12); NEUTROPHILS # (AUTO) 6.1 X 10^3 (1.8-7.8); NEUTROPHILS % (AUTO) 53 % (42-75); PLATELET COUNT 246 10^3/uL (130-400); RED CELL DISTRIBUTION WIDTH 14.4 % (10.0-14.5); WHITE BLOOD COUNT 11.3 10^3/uL (4.3-11.0)
[2019-01-26 06:29] LABS: ALANINE AMINOTRANSFERASE 27 U/L (0-55); ALBUMIN 3.6 GM/DL (3.2-4.5); ALKALINE PHOSPHATASE 74 U/L (40-136); BILIRUBIN,TOTAL 0.4 MG/DL (0.1-1.0); BUN/CREATININE RATIO 18; CALCIUM 9.1 MG/DL (8.5-10.1); CARBON DIOXIDE 22 MMOL/L (21-32); CHLORIDE 107 MMOL/L (98-107); GFR ESTIMATED > 60; GLUCOSE 115 MG/DL (70-105); POTASSIUM 4.3 MMOL/L (3.6-5.0); SODIUM 140 MMOL/L (135-145); TOTAL PROTEIN 6.5 GM/DL (6.4-8.2)
--- NOTE | 2019-01-26 06:44 | ED Lower Extremity ---
General Chief Complaint: Lower Extremity Stated Complaint: PLANTAR PUNCTURE WOUND L FOOT W/CELLULITIS Nursing Triage Note: Pt ambulatory with limp to triage. Pt reports stepping on a nail earlier today. Pt reports nail was approximately 3" long and was stuck in foot. Pt reports going to [facility] walk in today and getting a tetanus shot. Pt was not prescribed any additional medications. Pt c/o swelling, burning pain, and reports toes feeling numb and as if toes are on fire. Nursing Sepsis Screen: No Definite Risk Source: patient History of Present Illness Date Seen by Provider: Jan 25, 2019 Time Seen by Provider: 23:55 Initial Comments PT ARRIVES VIA POV FROM HOME STATES THAT AROUND 1630 TODAY, WHILE AT HIS SISTER'S HOUSE, HE STEPPED ON A 3" NAIL THAT WAS STICKING UP FROM A BOARD, AND NAIL WENT THROUGH HIS TENNIS SHOE AND EMBEDDED DEEPLY IN HIS LEFT FOOT, NEAR BASE OF GREAT AND 2ND TOES PT STATES HE WENT TO [facility] TODAY AT 1700 FOR THIS PROBLEM AND RECEIVED A TETANUS VACCINATION, BUT NO XRAYS OR RX FOR ANTIBIOTICS PT SATES THAT OVER THE LAST COUPLE OF HOURS, HE HAS HAD SEVERE PAIN/BURNING PAIN , WITH SIGNIFICANT SWELLING OF HIS LEFT FOOT UP TO HIS ANKLE, AND NOW FOOT IS RED STATES FOOT FEELS LIKE IT IS ON FIRE AND HIS TOES FEEL NUMB--NUMBNESS IS GONE RIGHT NOW NO DRAINAGE FROM WOUND HAS NOT TAKEN ANYTHING FOR PAIN NO HISTORY OF SIMILAR PT IS NOT DIABETIC. PCP: [facility]. MIGUELINA MAHER Allergies and Home Medications Allergies Coded Allergies: No Known Drug Allergies (Unverified , 06/25/11) Home Medications Aspirin 325 Mg Tabec, 325 MG PO DAILY, (Reported) Cyclobenzaprine Hcl 10 Mg Tablet, 1 EACH PO Q8HR PRN FOR MUSCLE SPASMS Prescribed by: LOUISE STARK on 12/04/12 1158 Docusate Sodium 100 Mg Tablet, 100 MG PO DAILY PRN, (Reported) Fenofibrate 135 Mg Capsule.dr, 1 EACH PO DAILY, (Reported) Gabapentin 600 Mg Tab, 600 MG PO TID, (Reported) Lorazepam 1 Mg Tablet, 1 EACH PO BID PRN, (Reported) Metoprolol Succinate 25 Mg Tab, 25 MG PO DAILY, (Reported) Naproxen 500 Mg Tablet, 1 EACH PO TID PRN FOR PAIN Prescribed by: LOUISE STARK on 12/04/12 1158 Pravastatin Sodium 40 Mg Tablet, 40 MG PO DAILY, (Reported) Tramadol Hcl 50 Mg Tab, 100 MG PO TID PRN, (Reported) Trazodone Hcl 50 Mg Tab, 100 MG PO HS, (Reported) Patient Home Medication List Home Medication List Reviewed: Yes Review of Systems Constitutional: see HPI Musculoskeletal: see HPI Skin: see HPI Psychiatric/Neurological: See HPI Past Njorzcm-Eagqmp-Hjoxrz Hx Patient Social History Alcohol Use: Past History (HISTORY OF ABUSE/HEAVY USE) Alcohol Beverage of Choice: Beer Recreational Drug Use: Yes (marijuana for pain relief) Drug of Choice: THC Smoking Status: Current Everyday Smoker Type Used: Cigarettes 2nd Hand Smoke Exposure: Yes Recent Foreign Travel: No Contact w/Someone Who Travel: No Recent Infectious Disease Expo: No Recent Hopitalizations: Yes Physical Abuse: No Sexual Abuse: No Immunizations Up To Date Tetanus Booster (TDap): Less than 5yrs Past Medical History Surgeries: Yes (hemorroidectomy in 1994; CARDIAC CATH-STENT; ) Appendectomy, Cardiac, Coronary Stent, Rectal Respiratory: No (DENIES COPD BUT SMOKES 4 PPD) Cardiac: Yes (PT DOES NOT TAKE MEDICATIONS, ALTHOUGH HE HAS BEEN PRESCRIBED MEDICATION) Coronary Artery Disease, High Cholesterol, Hypertension Neurological: Yes (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 ) Degenerate Disk Disease, Arthritis, Chronic Back Pain Endocrine: No Cancer: No Psychosocial: Yes Anxiety, Depression Integumentary: No Blood Disorders: No Family Medical History Patient reports no known family medical history. Physical Exam Vital Signs Vital Signs - First Documented 01/25/19 22:50 Temp 98.3 Pulse 87 Resp 18 B/P (MAP) 147/87 (107) Pulse Ox 98 O2 Delivery Room Air Capillary Refill : Less Than 3 Seconds Height, Weight, BMI Height: 5'10.00" Weight: 204lbs. 0.0oz. 92.278488kd; 29.3 BMI Method:Stated General Appearance: WD/WN, no apparent distress Legs: left leg normal inspection Knees: left knee normal inspection Ankles: left ankle soft tissue tenderness, left ankle swelling Feet: left foot bone tenderness, left foot infection, left foot limited range of motion, left foot pain, left foot soft tissue tenderness, left foot swelling , left foot other (PUNCTURE WOUND TO PLANTAR ASPECT OF LEFT FOOT OVER 1ST AND 2ND MTP JOINTS. MODERATE SWELLING AND ERYTHEMA TO BALL OF FOOT, GREAT TOE AND FOREFOOT--SWELLING EXTEND TO INCLLUDE THE ANKLE, AND FAINT LYMPHANGITIC STREAK EXTEND FROM DORSAL ASPECT OF FOOT TO ANTERIOR ANKLE. DISTAL MOTOR/SENSORY/ VASCULAR INTACT. ) Neurologic/Tendon: normal sensation, normal tendon functions Neurologic/Psychiatric: edge sawyer II-XII nml as tested, no motor/sensory deficits, alert, normal mood/affect, oriented x 3 Skin: normal color, warm/dry, other ( ABOVE) Progress/Results/Core Measures Results/Orders Lab Results Laboratory Tests Test 01/26/19 00:20 Range/Units White Blood Count 12.8 H 4.3-11.0 10^3/uL Red Blood Count 4.52 4.35-5.85 10^6/uL Hemoglobin 14.2 13.3-17.7 G/DL Hematocrit 42 40-54 % Mean Corpuscular Volume 93 80-99 FL Mean Corpuscular Hemoglobin 31 25-34 PG Mean Corpuscular Hemoglobin Concent 34 32-36 G/DL Red Cell Distribution Width 14.4 10.0-14.5 % Platelet Count 260 130-400 10^3/uL Mean Platelet Volume 9.4 7.4-10.4 FL Neutrophils (%) (Auto) 63 42-75 % Lymphocytes (%) (Auto) 28 12-44 % Monocytes (%) (Auto) 8 0-12 % Eosinophils (%) (Auto) 1 0-10 % Basophils (%) (Auto) 0 0-10 % Neutrophils # (Auto) 8.0 H 1.8-7.8 X 10^3 Lymphocytes # (Auto) 3.6 1.0-4.0 X 10^3 Monocytes # (Auto) 1.0 0.0-1.0 X 10^3 Eosinophils # (Auto) 0.1 0.0-0.3 10^3/uL Basophils # (Auto) 0.0 0.0-0.1 10^3/uL Erythrocyte Sedimentation Rate 12 0-30 MM/HR Prothrombin Time 12.6 12.2-14.7 SEC INR Comment 0.9 0.8-1.4 Activated Partial Thromboplast Time 30 24-35 SEC Sodium Level 138 135-145 MMOL/L Potassium Level 4.0 3.6-5.0 MMOL/L Chloride Level 101 98-107 MMOL/L Carbon Dioxide Level 25 21-32 MMOL/L Anion Gap 12 5-14 MMOL/L Blood Urea Nitrogen 16 7-18 MG/DL Creatinine 1.15 0.60-1.30 MG/DL Estimat Glomerular Filtration Rate > 60 BUN/Creatinine Ratio 14 Glucose Level 101 70-105 MG/DL Lactic Acid Level 0.87 0.50-2.00 MMOL/L Calcium Level 9.3 8.5-10.1 MG/DL Corrected Calcium 9.4 8.5-10.1 MG/DL Total Bilirubin 0.2 0.1-1.0 MG/DL Aspartate Amino Transf (AST/SGOT) 35 H 5-34 U/L Alanine Aminotransferase (ALT/SGPT) 32 0-55 U/L Alkaline Phosphatase 75 40-136 U/L C-Reactive Protein High Sensitivity 0.19 0.00-0.50 MG/DL Total Protein 6.9 6.4-8.2 GM/DL Albumin 3.9 3.2-4.5 GM/DL My Orders Orders - LOUISE STARK DO Ed Iv/Invasive Line Start (01/26/19 00:04) Foot, Left, 3 Views (01/26/19 00:04) Cbc With Automated Diff (01/26/19 00:04) Comprehensive Metabolic Panel (01/26/19 00:04) Hs C Reactive Protein (01/26/19 00:04) Erythrocyte Sedimentation Rate (01/26/19 00:04) Lactic Acid Analyzer (01/26/19 00:04) Protime With Inr (01/26/19 00:04) Partial Thromboplastin Time (01/26/19 00:04) Blood Culture (01/26/19 00:04) Cefazolin 2 Gm Iv Premixed (Ancef 2 Gm P (01/26/19 00:04) Ketorolac Injection (Toradol Injection) (01/26/19 00:15) Medications Given in ED Current Medications Medications Dose Ordered Sig/Elisabeth Route Start Time Stop Time Status Last Admin Dose Admin Ketorolac Tromethamine 30 mg ONCE ONCE IVP 01/26/19 00:15 01/26/19 00:16 DC 01/26/19 00:21 30 MG Vital Signs/I&O 01/25/19 22:50 Temp 98.3 Pulse 87 Resp 18 B/P (MAP) 147/87 (107) Pulse Ox 98 O2 Delivery Room Air Blood Pressure Mean: 99 Progress Progress Note : Progress Note UNEVENTFUL ER STAY Diagnostic Imaging Comments XRAYS LEFT FOOT--NO ACUTE BONY INJURY OR FOREIGN BODY--PENDING RADIOLOGIST REVIEW Reviewed: Reviewed by Me Departure Communication (Admissions) 0053--SPOKE WITH DR. CUNNINGHAM, ACCEPTS PT FOR ADMIT Impression Primary Impression: Puncture wound of plantar aspect of left foot with infection Additional Impression: CELLULITIS LEFT FOOT INCLUDING GREAT TOE, WITH LYMPHANGITIS Disposition: ADMITTED INPATIENT Condition: Improved Admissions Decision to Admit Reason: Admit from ER (General) Decision to Admit/Date: Jan 26, 2019 Time/Decision to Admit Time: 00:55 Departure-Patient Inst. Referrals: VON MAHER (Family) Primary Care Physician [facility]/NICHOLAS (PCP) Primary Care Physician LOUISE STARK DO Jan 26, 2019 06:44
--- NOTE | 2019-01-26 07:29 | Diagnostic Imaging Report ---
Clinical indication: Patient stepped on a nail earlier today at the base of the first toe. Patient complains of pain. Exam: X-ray of the left foot, 3 views. Comparison: None. Findings: There is no acute fracture or dislocation. There is moderate hypertrophic spurring of the first MTP joint. There is mildly hypertrophic calcaneal spur at the plantar attachment. Impression: 1: There is no acute fracture or dislocation. There is no radiodense foreign object seen. 2: There is degenerative disease of the calcaneus and first MTP joint. Dictated by: Dictated on workstation # [id number]
[2019-01-26 08:00] VITALS: BP 134/63
[2019-01-26] MEDS ORDERED: PIPERACILLIN/TAZO 4.5 GM/NS 100 ML IV SCH ×2 (08:00)
[2019-01-26] MEDS ORDERED: MULT1TAB65 PO (08:48)
--- NOTE | 2019-01-26 08:48 | NUR ---
PATIENT STATES HE DOES NOT TAKE ANY PRESCRIPTION MEDICATIONS. HE STATES HE HAS NOT TAKE ANY FOR SOME TIME. HE DOES TAKE AN OTC [employer] DAILY.
[2019-01-26] MEDS ORDERED: AMOX-358 PO (09:50)
--- NOTE | 2019-01-26 09:52 | Short Stay Summary-Hospitalist ---
History of Present Illness HPI/Chief Complaint CC: Left foot pain from nail puncture HPI: This is a 58yoWM who just has chronic back pain due to DJD of the spine who presented to the ER with left foot pain and swelling due to nail puncture wound when he walked over it and went through his shoe. At this current time pt is much improved having less swelling, less pain, and erythema and he has requested to go home. He did receive a tetanus injection at a [facility] prior to going to the ER. At this current time he is able to walk on the area. I did secure an appointment for him at [facility] on Tuesday for a close follow up since these can get very complicated with Osteomyelitis. I sent the antibiotic to [facility] and will DC him. Source: patient Exam Limitations: no limitations Date Seen 01/26/19 Time Seen by a Provider: 09:45 Attending Physician Evy Gee DO [facility]/[place] Referring Physician Date of Admission Jan 26, 2019 at 00:55 Home Medications & Allergies Home Medications Reviewed patient Home Medication Reconciliation performed by pharmacy medication reconciliations geodetic technician and/or nursing. Patients Allergies have been reviewed. Allergies Allergies Coded Allergies No Known Drug Allergies (Unverified06/25/11) Past Eydpqxl-Zcgzra-Avwdjn Hx Past Med/Social Hx: Reviewed Nursing Past Med/Soc Hx, Reviewed and Corrections made Patient Social History Marrital Status: single Employed/Student: unemployed Alcohol Use: Past History (HISTORY OF ABUSE/HEAVY USE) Alcohol Beverage of Choice: Beer Recreational Drug Use: Yes (marijuana for pain relief) Drug of Choice: THC Smoking Status: Current Everyday Smoker Type Used: Cigarettes 2nd Hand Smoke Exposure: Yes Recent Foreign Travel: No Contact w/other who traveled: No Recent Hopitalizations: Yes Recent Infectious Disease Expo: No Immunizations Up To Date Tetanus Booster (TDap): Less than 5yrs Past Medical History Surgeries: Appendectomy, Cardiac, Coronary Stent, Rectal Cardiac: Coronary Artery Disease, High Cholesterol, Hypertension Reproductive: No Gastrointestinal: Chronic Constipation Musculoskeletal: Degenerate Disk Disease, Arthritis, Chronic Back Pain Psychosocial: Anxiety, Depression History of Blood Disorders: No Family History Patient reports no known family medical history. Review of Systems Constitutional: see HPI EENTM: no symptoms reported Respiratory: no symptoms reported Cardiovascular: no symptoms reported Gastrointestinal: no symptoms reported Genitourinary: no symptoms reported Musculoskeletal: see HPI, joint pain Skin: no symptoms reported Psychiatric/Neurological: No Symptoms Reported All Other Systems Reviewed Negative Unless Noted: Yes Physical Exam Physical Exam Vital Signs Vital Signs - First Documented 01/25/19 22:50 Temp 98.3 Pulse 87 Resp 18 B/P (MAP) 147/87 (107) Pulse Ox 98 O2 Delivery Room Air Capillary Refill : Less Than 3 Seconds Height, Weight, BMI Height: 5'10.00" Weight: 204lbs. 0.0oz. 92.694885bm; 29.3 BMI Method:Stated General Appearance: No Apparent Distress, WD/WN, Chronically ill Eyes: Bilateral Eye Normal Inspection, Bilateral Eye PERRL HEENT: PERRL/EOMI, TMs Normal, Normal ENT Inspection, Pharynx Normal Neck: Full Range of Motion, Normal Inspection, Non Tender, Supple, Carotid Bruit Respiratory: Chest Non Tender, Lungs Clear, Normal Breath Sounds, No Accessory Muscle Use, No Respiratory Distress Cardiovascular: Regular Rate, Rhythm, No Edema, No Gallop, No JVD, No Murmur, Normal Peripheral Pulses Gastrointestinal: Normal Bowel Sounds, No Organomegaly, No Pulsatile Mass, Non Tender, Soft Back: Normal Inspection, No CVA Tenderness, No Vertebral Tenderness Extremity: Normal Capillary Refill, Normal Inspection, Normal Range of Motion, Non Tender, No Calf Tenderness, No Pedal Edema, Other (left foot mild edema and no erythema noted at puncture site) Neurologic/Psychiatric: Alert, Oriented x3, No Motor/Sensory Deficits, Normal Mood/Affect Skin: Normal Color, Warm/Dry Lymphatic: No Adenopathy Results Results/Procedures Labs Laboratory Tests 01/26/19 00:20 01/26/19 05:36 Patient resulted labs reviewed. Short Stay Diagnosis Discharge Diagnosis-Short Stay Admission Diagnosis Left foot nail puncture wound with cellulitis THC use CAD DJD Spine Final Discharge Diagnosis Left foot nail puncture wound with cellulitis THC use CAD DJD Spine Conclusion Plan DC home on PO abx Close f/u [facility] Tuesday Tetanus injection done at [facility] Diagnosis/Problems Diagnosis/Problems (1) Puncture wound of plantar aspect of left foot with infection Status: Acute Qualifiers: Qualified Codes: S91.332A - Puncture wound without foreign body, left foot, initial encounter; L08.9 - Local infection of the skin and subcutaneous tissue, unspecified Clinical Quality Measures DVT/VTE Risk/Contraindication: Risk Factor Score Per Nursin RFS Level Per Nursing on Admit: 2=Moderate JIM HUBBARD DO Jan 26, 2019 09:52
--- NOTE | 2019-01-26 10:57 | NUR ---
patient states does not have money for script for the antibiotic - called [facility] stated medication cost $15, social insurance analyst Birgit notified, trying to find assistance for the patient
--- NOTE | 2019-01-26 11:04 | NUR ---
CM/SS RNing notified this financial writer that patient unable to afford antibiotics. [facility] has prescription assistance (PALS) that the patient can utilize there. Attempted to leave message with the patient navigator over at [facility], left a message for her. Discussed this program availability at [facility] with the patient and RNing.
[2019-01-26 12:02] VITALS: BP 134/63
== END 2019-01-26 12:05 | disposition home or self-care (01) | DRG 603 ==
LOC: EDUNIT# 22:16 → ER 22:18 → 4TH 01-26 00:55
PROVIDERS: ADMIT Family Medicine; ATTEND Family Medicine
DX: L03.116 Cellulitis of left lower limb (principal); L03.032 Cellulitis of left toe; S91.342A Puncture wound with foreign body, left foot, initial encounter; F17.210 Nicotine dependence, cigarettes, uncomplicated; I25.10 Atherosclerotic heart disease of native coronary artery without angina pectoris; M47.9 Spondylosis, unspecified; I10 Essential (primary) hypertension; E78.00 Pure hypercholesterolemia, unspecified; G57.90 Unspecified mononeuropathy of unspecified lower limb; K59.09 Other constipation; M19.91 Primary osteoarthritis, unspecified site; F41.9 Anxiety disorder, unspecified; F32.9 Major depressive disorder, single episode, unspecified; F12.90 Cannabis use, unspecified, uncomplicated; W45.0XXA Nail entering through skin, initial encounter; Y92.009 Unspecified place in unspecified non-institutional (private) residence as the place of occurrence of the external cause; Z95.5 Presence of coronary angioplasty implant and graft
CPT/HCPCS: 36415; 73630; 80053; 83605; 85025; 85610; 85652; 85730; 86141; 87040

== ENCOUNTER 2019-02-18 13:27 | Emergency (ER) | payer MEDICARE, MEDICAID ==
[~2019-02-18] VITALS: Ht 177.8 cm; Wt 89.4 kg
[~2019-02-18 13:27] MED LIST changes: +AMOX-358 PO; +MULT1TAB65 PO
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
[2019-02-18] MEDS ORDERED: KETOROLAC 30 MG/ML VIAL IVP ONE (13:45)
[2019-02-18 13:48] LABS: BASOPHILS % (AUTO) 0 % (0-10); EOSINOPHILS % (AUTO) 0 % (0-10); HEMATOCRIT 41 % (40-54); HEMOGLOBIN 14.1 G/DL (13.3-17.7); LYMPHOCYTES # (AUTO) 1.8 X 10^3 (1.0-4.0); LYMPHOCYTES % (AUTO) 10 % (12-44); MEAN CORPUSCULAR HEMOGLOBIN 31 PG (25-34); MEAN CORPUSCULAR HGB CONC 35 G/DL (32-36); MEAN CORPUSCULAR VOLUME 89 FL (80-99); MEAN PLATELET VOLUME 9.5 FL (7.4-10.4); MONOCYTES # (AUTO) 0.7 X 10^3 (0.0-1.0); MONOCYTES % (AUTO) 4 % (0-12); NEUTROPHILS # (AUTO) 15.3 X 10^3 (1.8-7.8); NEUTROPHILS % (AUTO) 85 % (42-75); PLATELET COUNT 229 10^3/uL (130-400); RED CELL DISTRIBUTION WIDTH 14.7 % (10.0-14.5); WHITE BLOOD COUNT 17.9 10^3/uL (4.3-11.0)
[2019-02-18 13:49] LABS: BILIRUBIN,URINE NEGATIVE (NEGATIVE); CLARITY,URINE VERY CLOUDY; COLOR,URINE YELLOW; GLUCOSE, URINE (UA) NEGATIVE (NEGATIVE); KETONES,URINE NEGATIVE (NEGATIVE); LEUKOCYTE ESTERASE ,URINE 3+ (NEGATIVE); NITRITE,URINE NEGATIVE (NEGATIVE); PH,URINE 6 (5-9); PROTEIN,URINE 2+ (NEGATIVE); UROBILINOGEN,URINE 4 MG/DL (NORMAL)
[2019-02-18 13:57] LABS: BACTERIA,URINE MODERATE /HPF; WBC,URINE >100 /HPF
[2019-02-18 14:07] LABS: ALANINE AMINOTRANSFERASE 19 U/L (0-55); ALBUMIN 3.8 GM/DL (3.2-4.5); ALKALINE PHOSPHATASE 71 U/L (40-136); BILIRUBIN,TOTAL 0.9 MG/DL (0.1-1.0); BUN/CREATININE RATIO 13; CALCIUM 9.3 MG/DL (8.5-10.1); CARBON DIOXIDE 20 MMOL/L (21-32); CHLORIDE 103 MMOL/L (98-107); CREATININE SERUM 0.87 MG/DL (0.60-1.30); GFR ESTIMATED > 60; GLUCOSE 173 MG/DL (70-105); POTASSIUM 3.7 MMOL/L (3.6-5.0); SODIUM 135 MMOL/L (135-145); TOTAL PROTEIN 6.9 GM/DL (6.4-8.2)
[2019-02-18 14:24] LABS: BAND NEUTROPHILS 3 %; BASOPHILS % (MANUAL) 0 %; EOSINOPHILS % (MANUAL) 0 %; LYMPHOCYTES % (MANUAL) 8 %; MONOCYTES % (MANUAL) 1 %; NEUTROPHILS % (MANUAL) 88 %; RBC MORPH NORMAL
--- NOTE | 2019-02-18 14:42 | Diagnostic Imaging Report ---
PROCEDURE: CT urinary tract, rule out kidney stone. TECHNIQUE: Multiple contiguous axial images were obtained through the abdomen and pelvis without the use of intravenous contrast. Auto Exposure Controls were utilized during the CT exam to meet ALARA standards for radiation dose reduction. INDICATION: Back pain with radiation to the left side. Symptoms started one day earlier and increasing in severity. Urinary urgency. CORRELATION STUDY: 09/02/2015. FINDINGS: LOWER THORAX: Clear. LIVER: Unremarkable. GALLBLADDER: Gallbladder is contracted. No significant bile duct dilatation. SPLEEN: Unremarkable. PANCREAS: Unremarkable. ADRENAL GLANDS: Unremarkable. KIDNEYS: Rather low-density focus in the interpolar region of the right kidney favoring probable cyst. Kidneys and collecting systems are otherwise unremarkable. No definitive calcification within the ureters. ABDOMINAL AORTA: Unremarkable, nonaneurysmal. A few small shotty subcentimeter central retroperitoneal lymph nodes. GASTROINTESTINAL TRACT: Stomach is mildly distended with retained gastric contents. Small bowel is unremarkable. There is mild severity fecal retention. No bowel obstruction. Colonic diverticulosis without evidence for acute diverticulitis. Likely prior appendectomy. No abdominal ascites or free air. URINARY BLADDER: Relatively decompressed with resultant bladder wall thickening. REPRODUCTIVE: Prostate gland enlarged with multiple calcifications. Seminal vesicles are slightly prominent. OSSEOUS STRUCTURES: Grade 1 spondylolisthesis owing to pars interarticularis defect of L5 on S1. Marked nonacute compression deformity of T12. OTHER: None. IMPRESSION: 1. No evidence for obstructive uropathy. Negative for acute abnormality about the abdomen and/or pelvis. If symptoms persist, postcontrast imaging recommended. Dictated by: Dictated on workstation # [id number]
[2019-02-18] MEDS ORDERED: CIPR500T4 PO (14:58)
[2019-02-18] MEDS ORDERED: RX-IBUPROFEN 600 MG (MOTRIN) TAB PPK#4 PO STA (14:59)
[2019-02-18] MEDS ORDERED: ACETAMINOPHEN 500 MG TAB (TYLENOL) PO ONE (15:00)
[2019-02-18] MEDS ORDERED: cefTRIAXone FOR IV USE 1,000 MG in WATER (STERILE) FOR INJECTION 10 ML IV ONE (15:00)
[2019-02-18 15:17] VITALS: BP 123/84
== END 2019-02-18 15:19 | disposition home or self-care (01) ==
LOC: EDUNIT# 13:27 → ER 13:28
DX: N39.0 Urinary tract infection, site not specified (principal); I25.10 Atherosclerotic heart disease of native coronary artery without angina pectoris; E78.00 Pure hypercholesterolemia, unspecified; G62.9 Polyneuropathy, unspecified; F41.9 Anxiety disorder, unspecified; F32.9 Major depressive disorder, single episode, unspecified; I10 Essential (primary) hypertension; F12.10 Cannabis abuse, uncomplicated; F17.210 Nicotine dependence, cigarettes, uncomplicated; Z91.14 Patient's other noncompliance with medication regimen; Z95.5 Presence of coronary angioplasty implant and graft; Z87.19 Personal history of other diseases of the digestive system; Z90.49 Acquired absence of other specified parts of digestive tract; Z98.890 Other specified postprocedural states
CPT/HCPCS: 36415; 74176; 80053; 81000; 85007; 85027; 86308; 87077; 87088; 87186

== ENCOUNTER → 2021-08-19 | Outpatient (CLI) | payer MEDICARE, MEDICAID ==
[~2021-08-19] MED LIST changes: +CIPR500T5 PO; -MULT1TAB65 PO; +MULT1TAB66 PO
--- NOTE | 2021-08-19 10:02 | Diagnostic Imaging Report ---
PROCEDURE: MRI right joint upper extremity without contrast. TECHNIQUE: Multiplanar, multisequence non contrast-enhanced MRI of the right upper extremity was accomplished. INDICATION: Pain in the right shoulder. COMPARISON: None FINDINGS: There is marked motion artifact on multiple sequences resulting in suboptimal evaluation. No acute fracture is seen in the right shoulder. Alignment appears normal. There is no significant joint effusion. There is severe degenerative change in the acromioclavicular joint with bone spurs inferiorly. The acromion has a curved undersurface. There is moderate fluid in the subacromial and subdeltoid bursa. The coracoacromial ligament appears intact. The supraspinatus tendon demonstrates a full-thickness tear anteriorly measuring about 1.9 cm in width with retraction to the dome of the humeral head, about 2 cm. There is additional high-grade partial-thickness tearing in the supraspinatus tendon. The infraspinatus tendon demonstrates low-grade partial-thickness tearing distally with medial intrasubstance extension. The teres minor tendon is intact. The subscapularis tendon demonstrates a high-grade partial-thickness tear measuring about 5 mm at the articular surface with additional low-grade partial-thickness tearing. No focal muscular atrophy is appreciated. There is generalized muscular atrophy. The long head of the biceps tendon is difficult to evaluate due to marked motion artifact on the axial imaging. A complete tear is not seen. There appears to be some tenosynovitis. The glenoid labrum is suboptimally evaluated in the absence of intra-articular contrast. No large para labral cyst is seen. No axillary adenopathy is seen. No soft tissue masses are present. IMPRESSION: 1. Moderate-sized full-thickness tear of the supraspinatus tendon. Small high-grade partial-thickness tear in the subscapularis tendon. Additional low-grade partial-thickness tears in the rotator cuff. No focal muscular atrophy. 2. Severe degenerative changes in the acromioclavicular joint. 3. Suboptimal evaluation due to motion artifact. Dictated by: Dictated on workstation # [id number]
== END ==
LOC: RAD 07:50
PROVIDERS: ATTEND Physician Assistant
DX: M75.121 Complete rotator cuff tear or rupture of right shoulder, not specified as traumatic (principal); M19.011 Primary osteoarthritis, right shoulder; M19.012 Primary osteoarthritis, left shoulder; S46.911A Strain of unspecified muscle, fascia and tendon at shoulder and upper arm level, right arm, initial encounter
CPT/HCPCS: 73221

== ENCOUNTER → 2021-08-24 | Outpatient (CLI) | payer MEDICARE, MEDICAID ==
--- NOTE | 2021-08-24 10:10 | Diagnostic Imaging Report ---
EXAMINATION: MRI LT UPPER EXT JOINT W/O. TECHNIQUE: Multiplanar, multisequence MR imaging of the left shoulder was performed without contrast. COMPARISON: None available. INDICATION: Left shoulder pain. FINDINGS: The examination is extremely limited due to patient motion artifact on every acquired sequence. Rotator cuff: Severe motion artifact limits assessment for fine detail assessment. Allowing for this, there appears to be a full-thickness tear in the supraspinatus and infraspinous with the proximal stumps retracted to the level of the glenohumeral joint. There is mild to moderate fatty atrophy of both the supraspinatus and infraspinatus. No full-thickness tear of the subscapularis or teres minor. Glenoid labrum: Due to motion, the labrum cannot be adequately assessed. No large paralabral cyst. Long head of biceps: Motion artifact prevents evaluation of the long head of the biceps. Bones and cartilage: The humeral head is normal in morphology without fracture or focal osseous lesion. No glenohumeral chondromalacia. AC joint osteoarthritis is present. Soft tissues: No glenohumeral joint effusion. No MRI findings to suggest adhesive capsulitis. Fluid in the subacromial and subdeltoid space is likely due to full-thickness rotator cuff tear. There is mild intramuscular edema in the mid deltoid, suggestive of muscle strain or contusion. IMPRESSION: 1. Severely limited examination due to extensive patient motion artifact. Patient reported being in so much pain he could not hold still. 2. Allowing for motion, MRI does confirm the presence of full-thickness and likely complete tears of both the supraspinatus and infraspinatus which are retracted to level of the glenohumeral joint and have mild muscle atrophy. Dictated by: Dictated on workstation # [id number]
== END ==
LOC: RAD 08:45
PROVIDERS: ATTEND Physician Assistant
DX: M19.011 Primary osteoarthritis, right shoulder (principal); M19.012 Primary osteoarthritis, left shoulder
CPT/HCPCS: 73221